=== PATIENT | male | born 1945 | race Caucasian/White ===

== ENCOUNTER 2019-11-14 16:21 | Inpatient (IN) | payer MEDICARE, SELFPAY ==
[2019-11-14] VITALS (10 sets, daily range): BP systolic 107–138; BP diastolic 71–106; PULSE 104–169; RESP 20–32; TEMP 35.6–36.6; O2SAT 5–96; BMI 32.5
--- NOTE | ~2019-11-14 | US_ITS ---
US renal BI DATE: 11/17/2019 14:01 INDICATION: Elevated serum creatinine TECHNIQUE: Real-time imaging of the kidneys and urinary bladder. COMPARISON: None FINDINGS: The right kidney measures 10 cm length, the left kidney 11 cm length. There is a subcentimeter cyst of the upper pole of the left kidney. There is a 3.8 cm simple cyst of the lower pole of the left kidney. Otherwise no renal mass lesion or hydronephrosis is detected. There is a small amount of free fluid in the right upper quadrant. The urinary bladder is evacuated a nd not evaluated. IMPRESSION: Left renal cysts or Reviewed, dictated and finalized at [facility]. Reviewed, dictated and finalized at location [facility]. IMPRESSION: Left renal cysts or
--- NOTE | ~2019-11-14 | XR_ITS ---
EXAMINATION: XR chest 2V EXAM DATE: 11/14/2019 18:02 INDICATION: Atrial fibrillation. Dyspnea on exertion. TECHNIQUE: Frontal and lateral projections of the chest obtained and reviewed. There is no prior bennie dy for comparison. FINDINGS: Bilateral mid and lower lung zone indistinct reticulation, could be pulmonary edema given the mild cardiomegaly and small pleural effusions. Can't exclude underlying infection. No confluent c onsolidation or pneumothorax. There are no osseous abnormalities identified. IMPRESSION: 1. Findings consistent with mild CHF exacerbation. Reviewed, dictated and finalized at location [facility].
--- NOTE | 2019-11-14 17:13 | ECG_ITS ---
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
--- NOTE | 2019-11-14 17:14 | ED.ARRPALP ---
HPI - Arrhythmia/Palpitations General Chief Complaint: Arrhythmia/Palpitations Stated Complaint: Weakness Time Seen by Provider: 11/14/19 16:32 Source: patient Mode of arrival: ambulatory Limitations: no limitations History of Present Illness HPI narrative: Patient is a 74-year-old male presents to the emergency department with complaint of rapid heartbeat. Patient reports onset of symptoms approximately 1 to 2 weeks ago. Patient has history of atrial fibrillation for which he was cardioverted in the past. Patient states he finally decided to come to the emergency department for evaluation at the insistence of his . Patient states he has had dyspnea on exertion and felt quite short of breath walking into the emergency department from his car this evening. Patient complains of bilateral lower extremity edema for the past few days. He denies any chest pain. He denies any fever or recent illness symptoms. Patient had been on metoprolol and states he stopped taking his medication approximately 1 month ago. Patient states he has not been on a blood thinner anytime recently. complaint: rapid heart beat and atrial fibrillation Onset (ago): week(s) (1-2) Duration: constant Severity: similar to previous episodes Arrhythmia history: atrial fibrillation Associated symptoms: shortness of breath Related Data Home Medications Medication Instructions Recorded Confirmed No Home Medications 11/14/19 11/14/19 Allergies Allergy/AdvReac Type Severity Reaction Status Date / Time No Known Allergies Allergy Mild Verified 11/14/19 16:36 Review of Systems Review of Systems: All systems reviewed & are unremarkable except as noted in HPI and below Cardiovascular: Cardiovascular: Reports acrocyanosis, Denies chest pain, Reports rapid heart rate, Reports leg edema, Reports dyspnea and Reports dyspnea on exertion Respiratory: Respiratory: Reports dyspnea PMFSH Past Medical History Medical History (Updated 11/14/19 @ 20:46 by Hazel Chacon MD) Atrial fibrillation History of cardioversion Prostate cancer Surgical History Surgical History (Updated 11/14/19 @ 17:18 by Hazel Chacon MD) History of prostatectomy Social History Social History (Updated 11/14/19 @ 17:18 by Hazel Chacon MD) Smoking status: Never smoker Gender identity (if verbalized by the patient): Male Exam Const: General: cooperative, no acute distress and alert Nutritional Appearance: well nourished Orientation/consciousness: patient oriented x3 Limitations: no limitations Eyes: Conjunctivae: conjunctivae normal Pupils: Equal, round and reactive pupils present Resp: Effort & Inspection: normal respiratory effort Auscultation: clear to auscultation bilaterally Cardio: Rate: tachycardic Rhythm: abnormal rhythm irregularly irregular GI: GI Palp: Yes Soft to palpation and No Tenderness to palpation present (GI) Auscultation: normal bowel sounds Skin: General skin exam: normal color Neuro: General: patient oriented x3 Cognition (Neuro): normal cognition Speech: normal speech Extrem: General: full ROM, normal exam except as noted and edema bilateral Psych: Mental Status: mental status grossly normal Affect: normal affect Attitude: cooperative Course Course Emergency Course: Patient presents to the emergency department in atrial fibrillation with RVR. Patient has been off of his beta-darrion for approximately 1 month. Patient given bolus x2 of Cardizem and started on drip. Patient will be admitted to hospitalist service for further care. Patient also with findings of congestive heart failure and given Lasix. Consultations Consultation #1: Case discussed with Monica Posadas, hospitalist service, who accepted patient for admission. Date: 11/14/19 Time: 18:00 Vital Signs Vital signs: Vital Signs Temperature 96.0 F L 11/14/19 16:29 Pulse Rate 169 H 11/14/19 16:29 Respiratory Rate 32 H 11/14/19 16:29 Blood
[2019-11-14 17:33] LABS: Basophils Absolute Auto 0.1 K/mm3 (0.0-0.1); Basophils Percent Auto 0.5 % (0.2-1.2); Eosinophils Absolute Auto 0.1 K/mm3 (0-0.3); Eosinophils Percent Auto 0.8 % (0-4.4); Hematocrit 47.7 % (42.0-52.0); Hemoglobin 14.4 g/dL (14.0-18.0); Immature Granulocyte Absolute 0.08 K/mm3 (0.00-0.031); Immature Granulocyte Percent A 0.7 % (0-0.5); Lymphocytes Absolute Auto 0.98 K/mm3 (0.9-3.2); Lymphocytes Percent Auto 8.4 % (18.3-44.2); Mean Corpuscular HGB Conc 30.2 g/dl (32-36); Mean Corpuscular Hemoglobin 30.9 pg (26-34); Mean Corpuscular Volume 102.4 fl (80-100); Mean Platelet Volume 11.6 fl (7.4-10.4); Monocytes Absolute Auto 1.2 K/mm3 (0.1-0.6); Monocytes Percent Auto 10.3 % (2.6-8.5); Neutrophils Absolute Auto 9.3 K/mm3 (1.3-6.7); Neutrophils Percent Auto 79.3 % (45.5-73.1); Platelet Count Result 259 k/mm3 (150-375); Red Blood Count 4.66 M/mm3 (4.6-6.20); Red Cell Distribution Width 19.4 % (11.5-14.5); White Blood Count 11.7 K/mm3 (4.5-10.0)
[2019-11-14 17:44] LABS: INR 1.4; Partial Thromboplastin Time 28.3 SECONDS (22.3-36.8); Prothrombin Time 16.4 Seconds (11.1-14.7)
[2019-11-14 17:47] LABS: Albumin Level 4.7 g/dL (3.5-5.1); Alkaline Phosphatase 98 U/L (38-126); Aspartate Amino Transferase 72 U/L (17-59); Bilirubin,Total 4.1 mg/dL (0.2-1.3); Blood Urea Nitrogen 43 mg/dL (9-20); Calcium 9.9 mg/dL (8.4-10.2); Carbon Dioxide 21 mmol/L (22-30); Chloride 100 mmol/L (98-107); Estimated CRCL calculation 30 ml/min; Estimated Glomerular Filt Rate 25; Glucose 140 mg/dL (75-110); Magnesium 2.2 mg/dL (1.6-2.3); Potassium 4.2 mmol/L (3.4-5.0); Sodium 138 mmol/L (137-145)
[2019-11-14 17:56] LABS: Alanine Aminotransferase 75 U/L (4-50)
[2019-11-14 17:58] LABS: NT Pro B Type Natriuretic Pept 6740 PG/ML (5-100); Troponin I 0.058 ng/mL (0.000-0.034)
[2019-11-14] MEDS: FUROSEMIDE INJ 40 MG/4 ML VIAL IV PUSH (18:14)
--- NOTE | 2019-11-14 21:02 | PM.IMHP ---
H&P: HPI History of Present Illness Chief complaint: Shortness of breath and fast heart rate Narrative: Date and time of patient contact: 11/14/2019 at 21:50 Sony Betancourt is a 74 year old male with a past medical history of hypertension, obstructive sleep apnea, and paroxysmal atrial fibrillation who presented to the ER with shortness of breath and fast heart rate. He noticed approximately 2 weeks ago he began feeling more tired and short of breath. He also noticed that his heart rate was higher. His are rate was around 160-180 beats per minute when he arrived to the ER. He denies any chest pain. He denies any orthopnea paroxysmal nocturnal dyspnea. He has noticed bilateral ankle swelling. He does have a history of paroxysmal atrial fibrillation for which he underwent cardiac ablation approximately 2 years ago. He has not been taking his metoprolol as he should. He has been prescribed Eliquis and past but he quit taking it of his own accord. He denies a history of CHF. he does not know what other medications that he was on in the past. He tells me that he uses [facility] in that he last took his meds about a month ago. However none of his meds pull up in the external med history which they would if he obtain the med [employer]. He does report that he gets some of his medical care at the [facility] but has not been to the [facility] or his primary care physician for at least 8 months. Patient has been non compliant with his CPAP machine as well. He denies a history of CVAs and denies any recent neurologic changes. He has noticed a mild cough productive of small amount of clear phlegm. He denies any fevers or chills. (per nursing report) his is debilitated and he is her primary caregiver. When asked the patient why has not been taking his medications he is somewhat vague in his answers. He denies any nausea or vomiting. He has been having normal bowel movements. He denies any dysuria or changes in urinary frequency. He denies a history of kidney disease however he did have a creatinine is high at 1.5 and 2011. His creatinine today is 2.5. He reports that he has not uses CPAP in at least 6 months. He reports that it is too difficult to clean the machine frequently. He has not seen his travel accommodations rater in 2 years. His physician is at [facility]. Review of Systems Review of Systems: Narrative: 12 systems were reviewed with pertinent positives and negatives per HPI. Except as documented in the HPI, all other systems were reviewed and are negative. [facility] Past Medical History Medical History (Updated 11/14/19 @ 23:42 by Honey Diaz DO) Chronic kidney disease, stage 3 Essential hypertension History of cardioversion Hyperlipidemia Obstructive sleep apnea Noncompliant with CPAP Paroxysmal atrial fibrillation Prostate cancer Surgical History Surgical History (Updated 11/14/19 @ 23:42 by Honey Diaz DO) History of prostatectomy June 2010 Hx of tonsillectomy Family History Family History (Updated 11/14/19 @ 22:00 by Margi Miranda, MARTY) Mother Aneurysm Father Alcohol abuse Cirrhosis of liver Father No problems noted. Social History Social History (Updated 11/15/19 @ 00:06 by Honey Diaz DO) Social History: Primary care physician: Dr. Te Mueller Code status: Full code Smoking packs per day: 1 Smoking cigarettes per day: 20.0 Years smoked: 30 Smoking pack-years: 30.00 Smoking status: Former smoker Smoking end date: 07/25/79 Alcohol intake: current Alcohol use details: The patient only drinks alcohol rarely and only in moderation. Substance use: never Additional living arrangements comments: The patient lives in [facility] with his of 50 years. He has 3 grown children who are reportedly healthy. He is independent in all activities of daily living. Occupation/Education: retired Additional occupation/e
[2019-11-14 21:11] LABS: Troponin I 0.065 ng/mL (0.000-0.034)
--- NOTE | 2019-11-14 21:57 | ADMGEN ---
This patient, Sony Betancourt, was admitted to IMU Room 203-01 FROM ER 11/14/192129. Patient/family oriented to hospital policies and general routines including ID bracelet, bed and alarms, visiting hours, pain management, procedures, bathroom and other care routines, personal items, smoking policy, room service/diet, and visiting hours. Valuables list has been completed. Information on how to activate the Rapid Response Team has been discussed. Patient/Family are encouraged to report perceived risks to care and to ask questions if they do not understand what they are told or what they should do.
[2019-11-14] MEDS: ENOXAPARIN 120 MG/0.8 ML SYRINGE 103 MG SUB-Q (23:09)
[2019-11-14 23:28] LABS: Magnesium 2.2 mg/dL (1.6-2.3)
[2019-11-14 23:32] LABS: Troponin I 0.076 ng/mL (0.000-0.034)
[2019-11-15] VITALS (17 sets, daily range): BP systolic 97–122; BP diastolic 58–82; PULSE 70–138; RESP 20–24; TEMP 36–36.6; O2SAT 93–97
--- NOTE | 2019-11-15 | ECHO_ITS ---
Patient Info Name: Sony Betancourt Age: 74 years : 1945 Gender: Male Ht: 70 in Wt: 237 lbs BSA: 2.34 m2 HR: 105 bpm BP: 114 / 82 mmHg Heart Rhythm: Atrial Fibrillation Technical Quality: Good Exam Date: 11/15/2019 10:42 AM Exam Location: [facility] Pulmonary Exam Room: Patient Status: Inpatient Admit Date: 11/14/2019 Staff Ordering Physician: Honey Diaz DO Mechanical Maintenance Supervisor: Vivian Ruiz RDCS Attending Provider: Kong Fall MD Referring Physician: Emily DE JESUS; Exam Type: CA echo doppler color flow Study Info Indications - chf afib Complete two-dimensional, color flow and Doppler transthoracic echocardiogram is performed. Summary 1. Normal LV size and thickness with severe global hypokinesis, EF 30%. No focal wall motion abnormalities. Abnormal septal motion related to the patient's LBBB. Diastolic function is indeterminate. 2. Right ventricular chamber dimension is mildly enlarged with mild to moderate right ventricular hypokinesis. 3. Left atrial chamber dimension is moderately enlarged. 4. Right atrial chamber dimension is moderately enlarged. 5. There is moderate to severe eccentric mitral valve regurgitation. 6. There is severe tricuspid valve stenosis. 7. Moderate pulmonary hypertension, estimated pulmonary arterial systolic pressure is 51 mmHg. 8. Atrial fibrillation with rapid ventricular response. Left Ventricle Left ventricular chamber dimension is normal. Left ventricular systolic function is severely reduced, estimated at 25-30%. There is no increased left ventricular wall thickness. Left ventricular septal wall motion is abnormal with septal motion related to bundle branch block. The left ventricular diastolic function is indeterminate. Normal LV size and thickness with severe global hypokinesis, EF 30%. No focal wall motion abnormalities. Abnormal septal motion related to the patient's LBBB. Diastolic function is indeterminate. Right Ventricle Right ventricular chamber dimension is mildly enlarged with mild to moderate right ventricular hypokinesis. Right ventricular systolic function is reduced. Left Atria Left atrial chamber dimension is moderately enlarged. Right Atria Right atrial chamber dimension is moderately enlarged. Aortic Valve The aortic valve is trileaflet. There is no aortic valve sclerosis. There is no aortic valve stenosis. There is no aortic valve regurgitation. Pulmonic Valve The pulmonic valve is normal. There is no pulmonic valve stenosis. There is no pulmonic regurgitation. Mitral Valve The mitral valve has normal leaflets. There is no mitral valve stenosis. There is moderate to severe eccentric mitral valve regurgitation. Tricuspid Valve The tricuspid valve leaflets are normal. There is severe tricuspid valve stenosis. There is no tricuspid valve regurgitation. Moderate pulmonary hypertension, estimated pulmonary arterial systolic pressure is 51 mmHg. Pericardium/Pleural The pericardium appears normal. There is no pericardial effusion. Inferior Vena Cava Dilated inferior vena cava with <50% collapse upon inspiration consistent with Empty right atrial pressure, 10 mmHg. Aorta The aortic root size at the sinus of Valsalva is normal. The prox ascending aorta size is normal. Left Ventricular Outflow Tract Name Value Normal
[2019-11-15] MEDS: CYCLOBENZAPRINE HCL 5 MG TABLET PO (00:32)
[2019-11-15 06:37] LABS: Blood Urea Nitrogen 47 mg/dL (9-20); Calcium 9.2 mg/dL (8.4-10.2); Carbon Dioxide 23 mmol/L (22-30); Chloride 102 mmol/L (98-107); Estimated CRCL calculation 29 ml/min; Estimated Glomerular Filt Rate 27; Glucose 116 mg/dL (75-110); Potassium 4.2 mmol/L (3.4-5.0); Sodium 136 mmol/L (137-145)
[2019-11-15 07:43] LABS: Folic Acid 11.6 ng/mL (2.76->20)
[2019-11-15] MEDS: ENOXAPARIN 120 MG/0.8 ML SYRINGE 103 MG SUB-Q (08:24)
[2019-11-15] MEDS: FUROSEMIDE INJ 40 MG/4 ML VIAL IV PUSH ×2 (08:24→18:06)
--- NOTE | 2019-11-15 11:24 | PM.IMPN ---
Progress Note: A&P Assessment and Plan (1) Atrial fibrillation with RVR: Code(s): I48.91 - Unspecified atrial fibrillation Status: Acute Assessment and Plan: Known history of paroxysmal atrial fibrillation. Patient on IV diltiazem. Review of telemetry on 11/15/2019 with patient still having increase in heart rate up to 120s to 130s at time. Cardiology has been consulted and appreciate input. On therapeutic Lovenox. Will continue to monitor. IV metoprolol added per Cardiology. (2) Acute CHF: Qualifiers: Heart failure type: systolic Qualified Code(s): I50.21 - Acute systolic (congestive) heart failure Code(s): I50.9 - Heart failure, unspecified Status: Acute Assessment and Plan: Probably result of atrial fibrillation with RVR. Echocardiogram ordered. Continue IV Lasix. Will continue to monitor. On room air. Echocardiogram results available this evening with EF 30%, severe global hypokinesis, diastolic dysfunction indeterminate and moderate pulmonary hypertension. Moderate to severe eccentric mitral valve regurgitation noted. (3) Chronic kidney disease, stage 4 (severe): Code(s): N18.4 - Chronic kidney disease, stage 4 (severe) Status: Acute Assessment and Plan: Current baseline creatinine unknown but does have history of chronic kidney disease stage 3. Now appears to be stage IV with GFR 29 and creatinine 2.40 without change from admission. Will continue to monitor. (4) Essential hypertension: Code(s): I10 - Essential (primary) hypertension Status: Acute Assessment and Plan: Blood pressure blood pressure reviewed on 11/15/2019 and stable. Will continue to monitor on IV diltiazem with addition of IV metoprolol. (5) Macrocytosis: Code(s): D75.89 - Other specified diseases of blood and blood-forming organs Status: Acute Assessment and Plan: Macrocytosis noted without anemia. Vitamin B12 and folate are normal. (6) Obstructive sleep apnea: Code(s): G47.33 - Obstructive sleep apnea (adult) (pediatric) Status: Acute Assessment and Plan: Known to be noncompliant with CPAP. Will monitor. (7) DVT prophylaxis: Code(s): Z29.9 - Encounter for prophylactic measures, unspecified Status: Acute Assessment and Plan: Therapeutic Lovenox. Time Spent With Patient Time with patient: 15 - 25 minutes Subjective Date/time seen: 11/15/19 11:24 Interval history: Date of Service: 11/15/2019. Admitted with atrial fibrillation with RVR, CHF. Patient feeling better this morning. Denies chest pain or palpitations. Does not feel short of breath. Does have cough. No fever. No headache. No nausea or vomiting. Review of Systems Review of Systems: Narrative: Feeling better. Constitutional: Constitutional: Denies chills and Denies fever(s) ENT: Denies dysphagia Cardiovascular: Cardiovascular: Denies chest pain and Denies palpitations Respiratory: Respiratory: Reports cough and Denies dyspnea Gastrointestinal: Gastrointestinal: Denies abdominal pain, Denies nausea and Denies vomiting Genitourinary: Genitourinary: Reports no additional male genitourinary complaints Musculoskeletal: Musculoskeletal: Reports no additional musculoskeletal complaints Integumentary/Breasts: Skin/Breast: Denies rash Neurologic: Denies headache(s) Psychiatric: Psychiatric: Denies confusion Exam Narrative: Exam Narrative: Awake and alert. Const: General: no acute distress HENMT: Mouth: Yes moist mucous membranes Neck: Neck: supple Lymphatic: lymphadenopathy not noted Resp: Auscultation: clear to auscultation bilaterally, no rales and no wheezes Cardio: Rate: tachycardic Rhythm: abnormal rhythm irregularly irregular GI: Inspection: non-distended GI Palp: Yes Soft to palpation and No Tenderness to palpation present (GI) Auscultation: normal bowel sounds Skin: General skin exam: no rashes
--- NOTE | 2019-11-15 12:06 | WPDCN ---
Assessment and Plan Assessment and plan (1) Atrial fibrillation with RVR: Code(s): I48.91 - Unspecified atrial fibrillation Status: Acute Assessment and Plan: History of AFib in cardioversion 2 years ago. Now presents with AFib RVR on no medicines, not well controlled with Cardizem 15 milligrams/hour which I will increase to 20 milligrams/hour after a 10 mg bolus. Will try some IV metoprolol 5 mg q 4 H, but I suspect we will need to use IV amiodarone. Discussed the need for anticoagulation. CHADS2 Vasc score is 4 (age, CHF, HTN). Will change Lovenox to Xarelto or Eliquis if affordable. Eliquis preferred due to CKD. I hope to control the patient's heart rate and discharge him on rate controlling medications for office FU and perhaps an elective OTP CV. If that fails he may need a ROSIO guided cardioversion as an INPT. (2) Acute CHF: Qualifiers: Heart failure type: unspecified Qualified Code(s): I50.9 - Heart failure, unspecified Code(s): I50.9 - Heart failure, unspecified Status: Acute Assessment and Plan: New onset of acute CHF, probably diastolic, probably related to the AFib RVR. Echo pending. Continue Lasix 40 mg IV push b.i.d. Follow lytes w/ daily BMP. (3) Essential hypertension: Code(s): I10 - Essential (primary) hypertension Status: Acute Assessment and Plan: Not taking any medications at home. BP was high on admission but improved with IV Cardizem (4) Obstructive sleep apnea: Code(s): G47.33 - Obstructive sleep apnea (adult) (pediatric) Status: Acute Assessment and Plan: Noncompliant with CPAP (5) Chronic kidney disease, stage 4 (severe): Code(s): N18.4 - Chronic kidney disease, stage 4 (severe) Status: Acute Assessment and Plan: Patient unaware of chronic kidney disease. (6) Noncompliance: Code(s): Z91.19 - Patient's noncompliance with other medical treatment and regimen Status: Acute Assessment and Plan: I have explained to the patient that his heart problems will need long-term medications. HPI Data of Consult Date/Time: 11/15/19 12:06 Requesting Physician: Kong Fall MD Primary Care Provider: Te Mueller, Consult Narrative Narrative: Date of service: 11/15/2019 Sony Estrada is a 74 year old male whom we were asked to see at the request of the hospitalist for advice and opinion regarding his recurrent AFib in CHF in consultation. Mr. Estrada had atrial fibrillation about [address] Jones at [facility]. He was cardioverted. He does not recall any anticoagulation, no other heart problems such as heart failure or heart attacks, and does not recall any ablation. He was on metoprolol at the time. In any case, the patient stopped his medications and for the past 2 weeks has been feeling more tired, weaker and short of breath. He has had PND, orthopnea, palpitations, and edema as well as anorexia and a cough productive of clear sputum. No fevers chills or chest pain. He presented to the ER with a heart rate of 160s-180s and in heart failure. He has been started on a Cardizem drip but still remains tachycardic with heart rate of 120-140 on Cardizem 15 milligrams/hour. He was started on Lovenox as well. The patient has a history of hypertension but no diabetes. He does not recall any hyperlipidemia. He has sleep apnea but is noncompliant with CPAP. Nonsmoker. Review of Systems Constitutional: Constitutional: Reports fatigue, Reports lethargy and Reports weakness Eyes: Eyes: Denies blurry vision ENT: Denies epistaxis and Denies nasal congestion Cardiovascular: Cardiovascular: Denies chest pain, Reports pedal edema,
[2019-11-15] MEDS: METOPROLOL TARTRATE INJ 5 MG/5 ML VIAL IV PUSH ×3 (14:55→23:08)
[2019-11-15] MEDS: MELATONIN 3 MG TABLET PO (21:29)
[2019-11-15] MEDS: APIXABAN 5 MG TABLET PO (21:30)
[2019-11-15] MEDS: ONDANSETRON INJ 4 MG/2 ML VIAL IV PUSH (21:33)
[2019-11-16] VITALS (18 sets, daily range): BP systolic 92–106; BP diastolic 52–79; PULSE 58–104; RESP 18–20; TEMP 36.3–36.6; O2SAT 91–100
[2019-11-16 04:47] LABS: Blood Urea Nitrogen 55 mg/dL (9-20); Calcium 9.4 mg/dL (8.4-10.2); Carbon Dioxide 25 mmol/L (22-30); Chloride 99 mmol/L (98-107); Estimated CRCL calculation 19 ml/min; Estimated Glomerular Filt Rate 16; Glucose 150 mg/dL (75-110); Potassium 5.2 mmol/L (3.4-5.0); Sodium 134 mmol/L (137-145)
[2019-11-16] MEDS: APIXABAN 5 MG TABLET PO (09:45)
--- NOTE | 2019-11-16 10:17 | PM.IMPN ---
Progress Note: A&P Assessment and Plan (1) Atrial fibrillation with RVR: Code(s): I48.91 - Unspecified atrial fibrillation Status: Acute Assessment and Plan: Known history of paroxysmal atrial fibrillation. Cardiology consulted and appreciate input. Telemetry reviewed on 11/16/2019 with atrial fibrillation but heart rate controlled. Discussed with Cardiology. IV diltiazem discontinued. IV metoprolol transition to metoprolol tartrate. Initially on therapeutic Lovenox then Eliquis but due to cost now transition to warfarin for anticoagulation. Monitor INR. Will continue to monitor on IMU. Hopeful discharge in next few days. (2) Acute CHF: Qualifiers: Heart failure type: systolic Qualified Code(s): I50.21 - Acute systolic (congestive) heart failure Code(s): I50.9 - Heart failure, unspecified Status: Acute Assessment and Plan: Result of atrial fibrillation with RVR. Echocardiogram results available this evening with EF 30%, severe global hypokinesis, diastolic dysfunction indeterminate and moderate pulmonary hypertension. Moderate to severe eccentric mitral valve regurgitation noted. IV Lasix held today with increasing creatinine. Remains on room air. Will continue to monitor. (3) Acute renal failure superimposed on stage 4 chronic kidney disease: Qualifiers: Acute renal failure type: unspecified Qualified Code(s): N17.9 - Acute kidney failure, unspecified; N18.4 - Chronic kidney disease, stage 4 (severe) Code(s): N17.9 - Acute kidney failure, unspecified; N18.4 - Chronic kidney disease, stage 4 (severe) Status: Acute Assessment and Plan: Current baseline creatinine unknown but does have history of chronic kidney disease stage 3. Now appears to be stage IV with GFR 29 and creatinine 2.40 for the past 2 days. Unfortunately, creatinine increased to 3.70 today which is most likely result of diuretic use. IV Lasix now held. Will continue to monitor. If increasing creatinine level, may need Nephrology consult and/or renal ultrasound. (4) Essential hypertension: Code(s): I10 - Essential (primary) hypertension Status: Acute Assessment and Plan: Blood pressure reviewed on 11/16/2019 and stable. Will continue to monitor on oral metoprolol. (5) Macrocytosis: Code(s): D75.89 - Other specified diseases of blood and blood-forming organs Status: Acute Assessment and Plan: Macrocytosis noted without anemia. Vitamin B12 and folate are normal. (6) Obstructive sleep apnea: Code(s): G47.33 - Obstructive sleep apnea (adult) (pediatric) Status: Acute Assessment and Plan: Known to be noncompliant with CPAP. Presently stable. Will monitor. (7) DVT prophylaxis: Code(s): Z29.9 - Encounter for prophylactic measures, unspecified Status: Acute Assessment and Plan: Now on warfarin. Time Spent With Patient Time with patient: 15 - 25 minutes Subjective Date/time seen: 11/16/19 10:17 Interval history: Date of Service: 11/16/2019. Admitted with atrial fibrillation with RVR, CHF. Sitting at side of bed. No shortness of breath at rest. Still has slight cough. No chest pain. No chest pressure. No abdominal pain. Still has swelling in legs. Review of Systems Constitutional: Constitutional: Denies chills and Denies fever(s) ENT: Denies dysphagia Cardiovascular: Cardiovascular: Denies chest pain, Reports leg edema and Denies palpitations Respiratory: Respiratory: Reports cough and Denies dyspnea Gastrointestinal: Gastrointestinal: Denies abdominal pain, Denies dysphagia, Denies nausea and Denies vomiting Genitourinary: Genitourinary: Reports no additional male genitourinary complaints Musculoskeletal: Musculoskeletal: Reports no additional musculoskeletal complaints Integumentary/Breasts: Skin/Breast: Denies rash Neurologic: Denies headache(s) Psychiatric: Psychiatr
--- NOTE | 2019-11-16 11:40 | PM.PNCARD ---
Progress Note: A&P Assessment and Plan (1) Atrial fibrillation with RVR: Code(s): I48.91 - Unspecified atrial fibrillation Status: Acute Assessment and Plan: History of AFib with cardioversion 2 years ago. Presented with AFib RVR on no medicines Diltiazem drip discontinued due to LV dysfunction. Was also receiving Metoprolol 5 mg IV q.6 hours. Will transition to p.o. beta-darrion. Initially will start with tartrate to evaluate heart rate and blood pressure response. Recommend discharge on succinate due to LV dysfunction. CHADS2 Vasc score is 4 (age, CHF, HTN). Started on apixaban 5 mg q.12 hours. Does not have Part D coverage so will start him on warfarin 5 mg daily starting with this evening's dose. Hoped to control the his heart rate and discharge him on rate controlling medications for office FU and perhaps an elective OTP CV. With his poor EF and atrial dilatation doubt that cardioversion would be successful. He thinks he may want to follow up again with Dr. Lentz at [facility]. He has not seen him for a number of years. He asked about getting medications from the [place] however he does not have an established primary care provider there. Echo 11/15/2019:Normal LV size and thickness with severe global hypokinesis, EF 30%. No focal wall motion abnormalities. Abnormal septal motion related to the patient's LBBB. Diastolic function is indeterminate. Right ventricular chamber dimension is mildly enlarged with mild to moderate right ventricular hypokinesis. Left atrial chamber dimension is moderately enlarged. Right atrial chamber dimension is moderately enlarged. There is moderate to severe eccentric mitral valve regurgitation. There is severe tricuspid valve stenosis. Moderate pulmonary hypertension, estimated pulmonary arterial systolic pressure is 51 mmHg. (2) Acute CHF: Qualifiers: Heart failure type: systolic Qualified Code(s): I50.21 - Acute systolic (congestive) heart failure Code(s): I50.9 - Heart failure, unspecified Status: Acute Assessment and Plan: New onset of acute CHF. Echo as above. May be related to atrial fibrillation with rapid ventricular response. Creatinine up to 3.7 this morning. Furosemide on hold. Comfortable on room air. Does have some fine bibasilar crackles. Continue to monitor (3) Essential hypertension: Code(s): I10 - Essential (primary) hypertension Status: Acute Assessment and Plan: Not taking any medications at home. Blood pressure now soft but he is asymptomatic. Continue to monitor with the initiation of the Metoprolol tartrate. (4) Obstructive sleep apnea: Code(s): G47.33 - Obstructive sleep apnea (adult) (pediatric) Status: Acute Assessment and Plan: Noncompliant with CPAP (5) Chronic kidney disease, stage 4 (severe): Code(s): N18.4 - Chronic kidney disease, stage 4 (severe) Status: Acute Assessment and Plan: He is unaware of chronic kidney disease. (6) Noncompliance: Code(s): Z91.19 - Patient's noncompliance with other medical treatment and regimen Status: Acute Assessment and Plan: Again explained that his heart problems will need long-term medications. He verbalizes agreement Additional Plan Plan discussed with Dr. Ramirez 1230 11/16/2019 Time Spent With Patient Time with patient: less than 15 minutes Subjective Date/time seen: 11/16/19 11:40 Interval history: Follow-up for: atrial fibrillation with RVR, CHF. Date of service: 11/16/2019 Subjective: Denied chest discomfort. Some neck discomfort from the bed. Shortness of breath significantly improved. Unable to lay flat in bed at this time however. Is on room air. Occasional pro
[2019-11-16 13:16] LABS: Prothrombin Time 21.8 Seconds (11.1-14.7)
[2019-11-16] MEDS: METOPROLOL TARTRATE 25 MG TABLET PO ×2 (14:05→20:13)
[2019-11-16] MEDS: WARFARIN (*PBKC) 5 MG TABLET PO (17:37)
[2019-11-16] MEDS: MELATONIN 3 MG TABLET PO (20:13)
[2019-11-17] VITALS (16 sets, daily range): BP systolic 102–109; BP diastolic 61–81; PULSE 83–118; RESP 12–20; TEMP 36.1–36.7; O2SAT 92–97
[2019-11-17 04:45] LABS: Blood Urea Nitrogen 65 mg/dL (9-20); Calcium 8.8 mg/dL (8.4-10.2); Carbon Dioxide 26 mmol/L (22-30); Chloride 95 mmol/L (98-107); Estimated CRCL calculation 17 ml/min; Estimated Glomerular Filt Rate 14; Glucose 95 mg/dL (75-110); Magnesium 2.3 mg/dL (1.6-2.3); Potassium 4.6 mmol/L (3.4-5.0); Sodium 132 mmol/L (137-145)
[2019-11-17] MEDS: METOPROLOL TARTRATE 25 MG TABLET PO ×2 (08:42→21:59)
--- NOTE | 2019-11-17 10:10 | PM.IMPN ---
Progress Note: A&P Assessment and Plan (1) Atrial fibrillation with RVR: Code(s): I48.91 - Unspecified atrial fibrillation Status: Acute Assessment and Plan: Known history of paroxysmal atrial fibrillation. Cardiology consulted and appreciate input. Telemetry reviewed on 11/17/2019 with atrial fibrillation with heart rate controlled. Now on oral metoprolol tartrate. After discussion, patient on warfarin for anticoagulation. INR pending today. Will continue to monitor. (2) Acute CHF: Qualifiers: Heart failure type: systolic Qualified Code(s): I50.21 - Acute systolic (congestive) heart failure Code(s): I50.9 - Heart failure, unspecified Status: Acute Assessment and Plan: Result of atrial fibrillation with RVR. Echocardiogram results available this evening with EF 30%, severe global hypokinesis, diastolic dysfunction indeterminate and moderate pulmonary hypertension. Moderate to severe eccentric mitral valve regurgitation noted. IV Lasix placed on hold on 11/16/2019 due to increasing creatinine. Patient still remains on room air. Will continue to monitor. (3) Acute renal failure superimposed on stage 4 chronic kidney disease: Qualifiers: Acute renal failure type: unspecified Qualified Code(s): N17.9 - Acute kidney failure, unspecified; N18.4 - Chronic kidney disease, stage 4 (severe) Code(s): N17.9 - Acute kidney failure, unspecified; N18.4 - Chronic kidney disease, stage 4 (severe) Status: Acute Assessment and Plan: Current baseline creatinine unknown but does have history of chronic kidney disease stage 3. Now appears to be stage IV with GFR 29 and creatinine 2.40 on admission. Unfortunately, creatinine has now increased to 4.20 today. IV Lasix was used on admission but held yesterday. Nephrology consulted and appreciate input. Will check renal ultrasound. Will continue to monitor. (4) Essential hypertension: Code(s): I10 - Essential (primary) hypertension Status: Acute Assessment and Plan: Blood pressure reviewed on 11/17/2019 and low normal but stable. Will continue to monitor on oral metoprolol. (5) Macrocytosis: Code(s): D75.89 - Other specified diseases of blood and blood-forming organs Status: Acute Assessment and Plan: Macrocytosis noted without anemia. Vitamin B12 and folate are normal. (6) Obstructive sleep apnea: Code(s): G47.33 - Obstructive sleep apnea (adult) (pediatric) Status: Acute Assessment and Plan: Known to be noncompliant with CPAP. Presently stable. Will monitor. (7) DVT prophylaxis: Code(s): Z29.9 - Encounter for prophylactic measures, unspecified Status: Acute Assessment and Plan: Now on warfarin. Time Spent With Patient Time with patient: 15 - 25 minutes Subjective Date/time seen: 11/17/19 10:10 Interval history: Date of Service: 11/17/2019. Admitted with atrial fibrillation with RVR, CHF. Feeling better today. Denies cough and shortness of breath. No chest pain or pressure. Does still have swelling in legs. No abdominal pain, nausea or vomiting. No headache or dizziness. Has noticed decrease in urination. Review of Systems Review of Systems: Narrative: Feeling better. Constitutional: Constitutional: Denies chills and Denies fever(s) ENT: Denies dysphagia Cardiovascular: Cardiovascular: Denies chest pain, Reports leg edema and Denies palpitations Respiratory: Respiratory: Reports cough and Denies dyspnea Gastrointestinal: Gastrointestinal: Denies abdominal pain, Denies dysphagia, Denies nausea and Denies vomiting Genitourinary: Genitourinary: Denies hematuria, Reports oliguria and Denies dysuria Musculoskeletal: Musculoskeletal: Reports no additional musculoskeletal complaints Integumentary/Breasts: Skin/Breast: Denies rash Neurologic: Denies headache(s) Psychiatric: Psychiatric: Denies confusion
--- NOTE | 2019-11-17 11:11 | PM.CNNEP ---
Assessment and Plan Assessment and plan (1) Elevated serum creatinine: Code(s): R79.89 - Other specified abnormal findings of blood chemistry Status: Acute Assessment and Plan: The patient had an elevated creatinine in 2010 of 1.5. At that point he had gross hematuria and urinary retention so it is unclear whether that was a chronic level of 1.5 or if that was just high at that time because of his symptoms. He has not had any labs done since then that he knows of. So it is unclear whether he has chronic kidney disease or not. Certainly the patient has diseases that would cause chronic kidney disease such as hypertension, sleep apnea which is untreated, and a history of smoking. We can get a renal ultrasound to see how because kidneys are to give us a clue as to whether he does have chronic disease or not. (2) Acute kidney injury: Code(s): N17.9 - Acute kidney failure, unspecified Status: Acute Assessment and Plan: The patient's creatinine was high on admission. This could be his chronic baseline if he does have CKD, see above. On the other hand he could just have acute kidney injury. Certainly the last couple of days his creatinine has risen above that 2.5 so he does have a component of acute kidney injury regardless. One possibility is that diuretics have caused his creatinine to rise. However his urine output has not been that great. I am not sure be saving all of his urine, though. He could have some form of acute kidney injury such as glomerulonephritis, infiltrative disease, etc which is just progressing. We will get some labs to figure this out. He does not seem to have much in the way of symptoms of something like this. Obstruction is a possibility as his urine output is down any has a history of prostate cancer. We will get an ultrasound and a PSA. Under perfusion of the kidneys because of a bad heart is a possibility. He does have an ejection fraction of only 30%. In addition the patient has moderate pulmonary hypertension most likely due to sleep apnea. (3) Essential hypertension: Code(s): I10 - Essential (primary) hypertension Status: Acute Assessment and Plan: Blood pressure is doing pretty well. (4) Obstructive sleep apnea: Code(s): G47.33 - Obstructive sleep apnea (adult) (pediatric) Status: Acute Assessment and Plan: He needs to start using the CPAP machine. (5) Acute CHF: Qualifiers: Heart failure type: systolic Qualified Code(s): I50.21 - Acute systolic (congestive) heart failure Code(s): I50.9 - Heart failure, unspecified Status: Acute Assessment and Plan: The patient has bilateral heart failure with a poor LV ejection fraction and moderate pulmonary hypertension. (6) Atrial fibrillation with RVR: Code(s): I48.91 - Unspecified atrial fibrillation Status: Acute Assessment and Plan: Pulses well controlled now. He used to be on Eliquis History of Present Illness Reason for Consult Consult date: 11/17/19 Chief Complaint Chief complaint: Atrial fibrillation w/ RVR, Acute CHF History of Present Illness Narrative: Shahram is a very pleasant 74-year-old gentleman who never sees the doctor. Apparently he does have a past history of an elevated creatinine in 2010, paroxysmal atrial fibrillation having been prescribed Eliquis in the past but he just stopped using it,Off medications, sleep apnea but does not want to use a CPAP machine, hyperlipidemia, prostate cancer. The patient says that over the last few weeks he has been gradually more swollen and short of breath. He has not had any fevers or cough. No chest pain. He notes for about the last week or 2 that he has not been making as much urine as usual. He generally does get up at night 1 or 2 times to urinate but even this is less of an issue. He says he does have a mildly slow stream. He denies any bloody urine, foamy urine, kidne
--- NOTE | 2019-11-17 12:00 | PM.PNCARD ---
Progress Note: A&P Additional Plan 74-year-old man with: History of atrial fibrillation remote history of cardioversion. But now has recurrent atrial fib of unknown duration. Heart rate is reasonably well controlled with metoprolol. Systemic anticoagulation with warfarin has been started. Chronic kidney disease appears to be much more significant issue that it may have been in the past. No need to adjust beta-darrion regimen today and there is no cardiac reason the needs to remain hospitalized from what I can see. The patient has seen home performance consultant at [facility] in the past and my understanding is he plans to follow up with them after discharge from [facility]. Will follow with you while he is here Lj Ramirez MD [facility] Subjective Date/time seen: Date of service: 11/17/19 12:00 Interval history: Follow-up visit for management of atrial fibrillation in this 74-year-old man Reports no cardiovascular symptoms. Patient saw the nephrology industrial methods consultant this morning and some additional workup has been ordered regarding that. Exam Const: General: comfortable and no acute distress HENMT: Mouth: Yes moist mucous membranes Eyes: Sclera: sclerae normal Pupils: Equal, round and reactive pupils present Neck: Neck: supple and no JVD Thyroid: thyroid normal Other: Carotid pulses are intact bilaterally and free of bruits Resp: Effort & Inspection: normal respiratory effort Auscultation: clear to auscultation bilaterally Cardio: Rhythm: abnormal rhythm irregularly irregular GI: Auscultation: normal bowel sounds Skin: General skin exam: normal color Neuro: Cognition (Neuro): normal cognition Extrem: General: normal to inspection Objective Data Vital Signs Vital Signs: Vital Signs - 24 hr 11/16/19 14:00 11/16/19 14:05 11/16/19 16:00 Temperature 36.4 C L Pulse Rate 104 H 98 70 Respiratory Rate 20 Blood Pressure 106/68 Pulse Oximetry 93 11/16/19 18:00 11/16/19 19:42 11/16/19 20:00 Temperature 36.4 C Pulse Rate 89 79 79 Respiratory Rate 18 18 Blood Pressure 103/68 Pulse Oximetry 91 91 11/16/19 20:13 11/16/19 21:42 11/17/19 00:00 Temperature 36.1 C L Pulse Rate 98 90 95 Respiratory Rate 20 Blood Pressure 102/61 Pulse Oximetry 92 11/17/19 01:55 11/17/19 03:44 11/17/19 03:45 Temperature 36.1 C L Pulse Rate 83 95 95 Respiratory Rate 16 16 Blood Pressure 105/81 Pulse Oximetry 94 94 11/17/19 04:00 11/17/19 06:00 11/17/19 08:00 Temperature 36.1 C L Pulse Rate 88 98 110 H Respiratory Rate 12 Blood Pressure 109/63 Pulse Oximetry 96 11/17/19 08:42 11/17/19 10:50 11/17/19 11:52 Temperature 36.5 C Pulse Rate 114 H 86 93 Respiratory Rate 12 Blood Pressure 104/72 Pulse Oximetry 95 Intake/Output Intake/Output: Intake & Output 11/14/19 11/15/19 11/16/19 11/17/19 23:59 23:59 23:59 23:59 Intake Total 1500 1062.7 840 Output Total 500 100 125 Balance 1000 962.7 715 Meds/Results Medications: Active Medications Generic Name Dose Route Start Last Admin Trade Name Freq PRN Reason Stop Dose Admin Cyclobenzaprine HCl 5 mg 11/14/19 23:30 11/15/19 00:32 Flexeril PO 5 mg Q8H PRN Administration Muscle Spasm Furosemide 40 mg 11/15/19 17:00 11/16/19 10:18 Lasix Inj IV PUSH Not Given BID JAIME Melatonin 3 mg 11/15/19 21:00 11/16/19 20:13 Melatonin PO 3 mg HS JAIME Administration Metoprolol Tartrate 25 mg 11/16/19 12:35 11/17/19 08:42 Lopressor PO 25 mg Q12HR JAIME Administration Ondansetron HCl 4 mg 11/15/19 20:55 11/15/19 21:33 Zofran Inj IV PUSH 4 mg Q4H PRN Administration Nausea And Vomiting Warfarin Sodium 5 mg 11/16/19 17:00 11/16/19 17:37 Coumadin PO 5 mg DAILY@1700 JAIME Administration Radiology Results: ITS Impressions Chest X-Ray 11/14/19 18:04 IMPRESSION: 1. Findings consistent with mild CHF exacerbation.
[2019-11-17 12:35] LABS: Basophils Absolute Auto 0.1 K/mm3 (0.0-0.1); Basophils Percent Auto 0.6 % (0.2-1.2); Eosinophils Absolute Auto 0.3 K/mm3 (0-0.3); Eosinophils Percent Auto 2.6 % (0-4.4); Hematocrit 39.9 % (42.0-52.0); Hemoglobin 12.5 g/dL (14.0-18.0); Lymphocytes Absolute Auto 0.86 K/mm3 (0.9-3.2); Lymphocytes Percent Auto 8.6 % (18.3-44.2); Mean Corpuscular HGB Conc 31.3 g/dl (32-36); Mean Corpuscular Hemoglobin 31.8 pg (26-34); Mean Corpuscular Volume 101.5 fl (80-100); Mean Platelet Volume 11.3 fl (7.4-10.4); Monocytes Absolute Auto 1.2 K/mm3 (0.1-0.6); Monocytes Percent Auto 12.2 % (2.6-8.5); Neutrophils Absolute Auto 7.5 K/mm3 (1.3-6.7); Nucleated Red Blood Cells Perc 0.2 % (0.0-0.2); Platelet Count Result 224 k/mm3 (150-375); Red Blood Count 3.93 M/mm3 (4.6-6.20); Red Cell Distribution Width 18.9 % (11.5-14.5)
[2019-11-17 12:44] LABS: INR 1.6; Prothrombin Time 18.3 Seconds (11.1-14.7)
[2019-11-17 12:48] LABS: Creatine Kinase 57 U/L (55-170)
[2019-11-17 12:57] LABS: Complement C3 89 mg/dL (88-165)
[2019-11-17 13:06] LABS: Erythrocyte Sedimentation Rate 12 mm/hr (0-20)
--- NOTE | 2019-11-17 16:05 | PC.NURSE ---
Received from [facility] / via bed.
--- NOTE | 2019-11-17 16:05 | PC.NURSE ---
This patient, Sony Betancourt, was transferred to [facility] on 11/17/19 at 1605. Personal belongings sent with patient. Belongings list checked and signed with receiving RN. Report given to MARTY Plata. Appropriate documentation sent with patient.
[2019-11-17] MEDS: WARFARIN (*PBKC) 5 MG TABLET PO (16:58)
[2019-11-17] MEDS: MELATONIN 3 MG TABLET PO (22:03)
[2019-11-18 04:47] VITALS: BP 106/82; PULSE 76; RESP 16; TEMP 36.4; O2SAT 97
[2019-11-18 06:21] LABS: INR 1.7; Prothrombin Time 19.1 Seconds (11.1-14.7)
[2019-11-18 06:31] LABS: Albumin Level 3.7 g/dL (3.5-5.1); Blood Urea Nitrogen 68 mg/dL (9-20); Calcium 8.7 mg/dL (8.4-10.2); Carbon Dioxide 27 mmol/L (22-30); Chloride 96 mmol/L (98-107); Estimated CRCL calculation 20 ml/min; Estimated Glomerular Filt Rate 16; Glucose 127 mg/dL (75-110); Phosphorus 5.1 mg/dL (2.5-4.5); Potassium 4.1 mmol/L (3.4-5.0); Sodium 132 mmol/L (137-145)
[2019-11-18 08:16] VITALS: PULSE 120
[2019-11-18] MEDS: METOPROLOL TARTRATE 25 MG TABLET PO ×2 (08:16→20:38)
[2019-11-18 09:10] VITALS: PULSE 120; RESP 16; O2SAT 97
--- NOTE | 2019-11-18 09:20 | PM.PNNEP ---
Progress Note: A&P Assessment and Plan (1) Elevated serum creatinine: Code(s): R79.89 - Other specified abnormal findings of blood chemistry Status: Acute Assessment and Plan: Possible CKD but unclear baseline anywhere from normal to 2.5. (2) Acute kidney injury: Code(s): N17.9 - Acute kidney failure, unspecified Status: Acute Assessment and Plan: The patient's creatinine was high on admission. This could be his chronic baseline if he does have CKD Renal sonogram is normal except for 1 cyst. Urines are still uncollected. I suspect that he has acute kidney injury from cardiorenal syndrome due to a combination of LV insufficiency and tricuspid stenosis. He was on diuretics to try to help with the fluid overload. His symptoms in this regard are better and so diuretics have been discontinued. His creatinine is better off diuretics. Hopefully creatinine will continue to improve before his fluid becomes an issue again. There are some areas that can be improved such is using his BiPAP machine, staying on a low-salt diet, taking his medications. Is are something we can do about the tricuspid stenosis? (3) Essential hypertension: Code(s): I10 - Essential (primary) hypertension Status: Acute Assessment and Plan: Blood pressure is doing pretty well. (4) Obstructive sleep apnea: Code(s): G47.33 - Obstructive sleep apnea (adult) (pediatric) Status: Acute Assessment and Plan: He needs to start using the CPAP machine. (5) Acute CHF: Qualifiers: Heart failure type: systolic Qualified Code(s): I50.21 - Acute systolic (congestive) heart failure Code(s): I50.9 - Heart failure, unspecified Status: Acute Assessment and Plan: The patient has bilateral heart failure with a poor LV ejection fraction and moderate pulmonary hypertension. Echo also shows severe tricuspid stenosis. (6) Atrial fibrillation with RVR: Code(s): I48.91 - Unspecified atrial fibrillation Status: Acute Assessment and Plan: Pulses well controlled now. He used to be on Eliquis Subjective Date/time seen: 11/18/19 09:20 Interval history: They but is feeling better today. He is eating some breakfast. No shortness of breath or chest pain Review of Systems Cardiovascular: Cardiovascular: Reports no additional cardiovascular complaints Respiratory: Respiratory: Reports no additional respiratory complaints Gastrointestinal: Gastrointestinal: Reports no additional gastrointestinal complaints Genitourinary: Genitourinary: Reports no additional male genitourinary complaints Exam Narrative: Exam Narrative: WDWN in NAD skin no rash head ncat lungs clear cor reg no rub abd BS+ nontender and soft ext no edema. Objective Data Vital Signs Vital Signs: Vital Signs - 24 hr 11/17/19 10:50 11/17/19 11:52 11/17/19 12:00 Temperature 36.5 C Pulse Rate 86 93 108 H Respiratory Rate 12 Blood Pressure 104/72 Pulse Oximetry 95 11/17/19 14:00 11/17/19 16:05 11/17/19 20:00 Temperature Pulse Rate 112 H 84 Respiratory Rate 16 14 Blood Pressure Pulse Oximetry 95 97 11/17/19 21:54 11/17/19 21:59 11/18/19 04:47 Temperature 36.7 C 36.4 C L Pulse Rate 84 84 76 Respiratory Rate 14 16 Blood Pressure 104/69 106/82 Pulse Oximetry 97 97 11/18/19 08:16 Temperature Pulse Rate 120 H Respiratory Rate Blood Pressure Pulse Oximetry Intake/Output Intake/Output: Intake & Output 11/15/19 11/16/19 11/17/19 11/18/19 23:59 23:59 23:59 23:59 Intake Total 1500 1062.7 1420 550 Output Total 500 100 250 475 Balance 1000 962.7 1170 75 Meds/Results Medications: Active Medications Generic Name Dose Route Start Last Admin Trade Name Freq PRN Reason Stop Dose Admin Cyclobenzaprine HCl 5 mg 11/14/19 23:30 11/15/19 00:32 Flexeril PO 5 mg Q8H PRN Administration Muscle Spasm Paulina
--- NOTE | 2019-11-18 10:40 | PM.PNCARD ---
Progress Note: A&P Additional Plan 74-year-old gentleman with previously paroxysmal AFib now appears to be chronic persistent. Coumadin has been started at 5 mg daily his INR is climbing and this appears to be a higher dose than he will need. I am going to empirically reduce this to 3 mg daily as of today's dosage. Metoprolol is providing fairly good heart rate control. No other cardiac recommendations at this time. 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 We will therefore not be arranging follow-up in our practice as well Lj Ramirez MD [facility] Subjective Date/time seen: Date of service: 11/18/19 10:40 Interval history: Follow-up visit in 74-year-old man with history of paroxysmal atrial fib now appears to have chronic persistent atrial fib. Patient is being managed with rate control and anticoagulation. Because of renal failure he is being treated with Coumadin. Patient indicates desire to follow-up with Dr. 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 Upon awakening he arouses response to questions offers no complaints HENMT: Mouth: Yes dry mucous membranes Eyes: Sclera: sclerae normal Pupils: Equal, round and reactive pupils present Neck: Neck: supple and no JVD Thyroid: thyroid normal Resp: Effort & Inspection: normal respiratory effort Auscultation: clear to auscultation bilaterally Cardio: Rhythm: abnormal rhythm irregularly irregular GI: Auscultation: normal bowel sounds Skin: General skin exam: normal color Neuro: Cognition (Neuro): normal cognition Objective Data Vital Signs Vital Signs: Vital Signs - 24 hr 11/17/19 10:50 11/17/19 11:52 11/17/19 12:00 Temperature 36.5 C Pulse Rate 86 93 108 H Respiratory Rate 12 Blood Pressure 104/72 Pulse Oximetry 95 11/17/19 14:00 11/17/19 16:05 11/17/19 20:00 Temperature Pulse Rate 112 H 84 Respiratory Rate 16 14 Blood Pressure Pulse Oximetry 95 97 11/17/19 21:54 11/17/19 21:59 11/18/19 04:47 Temperature 36.7 C 36.4 C L Pulse Rate 84 84 76 Respiratory Rate 14 16 Blood Pressure 104/69 106/82 Pulse Oximetry 97 97 11/18/19 08:16 11/18/19 09:10 Temperature Pulse Rate 120 H 120 H Respiratory Rate 16 Blood Pressure Pulse Oximetry 97 Intake/Output Intake/Output: Intake & Output 11/15/19 11/16/19 11/17/19 11/18/19 23:59 23:59 23:59 23:59 Intake Total 1500 1062.7 1420 550 Output Total 500 100 250 475 Balance 1000 962.7 1170 75 Meds/Results Medications: Active Medications Generic Name Dose Route Start Last Admin Trade Name Freq PRN Reason Stop Dose Admin Cyclobenzaprine HCl 5 mg 11/14/19 23:30 11/15/19 00:32 Flexeril PO 5 mg Q8H PRN Administration Muscle Spasm Melatonin 3 mg 11/15/19 21:00 11/17/19 22:03 Melatonin PO 3 mg HS JAIME Administration Metoprolol Tartrate 25 mg 11/16/19 12:35 11/18/19 08:16 Lopressor PO 25 mg Q12HR JAIME Administration Ondansetron HCl 4 mg 11/15/19 20:55 11/15/19 21:33 Zofran Inj IV PUSH 4 mg Q4H PRN Administration Nausea And Vomiting Radiology Results: ITS Impressions Chest X-Ray 11/14/19 18:04 IMPRESSION: 1. Findings consistent with mild CHF exacerbation. Renal Ultrasound 11/17/19 16:58 IMPRESSION: Left renal cysts or Labs Labs: Laboratory Results - last 24 hr 11/17/19 11/17/19 11/17/19 12:07 12:07 12:07 WBC 10.0 RBC 3.93 L Hgb 12.5 L Hct 39.9 L MCV 101.5 H MCH 31.8 MCHC 31.3 L RDW 18.9 H Plt Count 224 MPV 11.3 H Immature Gran % (Auto) 1.0 H Neut % (Auto) 75.0 H Lymph % (Auto) 8.6 L [place] % (Auto) 12.2 H Eos % (Auto) 2.6 Baso % (Auto) 0.6
--- NOTE | 2019-11-18 12:48 | PM.IMPN ---
Progress Note: A&P Assessment and Plan (1) Acute renal failure superimposed on stage 4 chronic kidney disease: Qualifiers: Acute renal failure type: unspecified Qualified Code(s): N17.9 - Acute kidney failure, unspecified; N18.4 - Chronic kidney disease, stage 4 (severe) Code(s): N17.9 - Acute kidney failure, unspecified; N18.4 - Chronic kidney disease, stage 4 (severe) Status: Acute Assessment and Plan: Current baseline creatinine unknown but does have history of chronic kidney disease stage 3. Now appears to be stage IV with GFR 29 and creatinine 2.40 on admission. Creatinine did rise to 4.20 after diuretics on 11/17/2019 with nephrology consulted. Appreciate input from Nephrology. 24 hour urine in process. Creatinine has improved to 3.70 again today. IV diuretics were discontinued on 11/16/2019 with increasing creatinine level. Renal ultrasound with left renal cysts. Will continue to monitor. Hopefully will not have recurrence of fluid overload issues without diuretic. Anticipate he should be able to discharge home creatinine has improved and he is otherwise stable. I did speak with his daughter Madiha ([phone]) with patient's permission as she does live in [place]. I had a long discussion with her regarding patient's current course and treatment plan. Daughter appreciative of information. (2) Atrial fibrillation with RVR: Code(s): I48.91 - Unspecified atrial fibrillation Status: Acute Assessment and Plan: Known history of paroxysmal atrial fibrillation. Cardiology consulted and appreciate input. Heart rate now remains controlled on metoprolol tartrate. Now on warfarin for anticoagulation with INR 1.7 today. Warfarin dosage adjusted to 3 mg per Cardiology today. Patient now plans to follow-up with his regular family services specialist, Dr. Lentz, at [facility]. Discussed with daughter patient will need to follow-up as he apparently has not been doing so recently. Daughter does mention patient was previously on Eliquis but discontinued for unknown reason. I did explain warfarin was currently chosen for anticoagulation due to cost of newer agents. Patient may need to rediscuss choice of anticoagulant with regular family services specialist after discharge. (3) Acute CHF: Qualifiers: Heart failure type: systolic Qualified Code(s): I50.21 - Acute systolic (congestive) heart failure Code(s): I50.9 - Heart failure, unspecified Status: Acute Assessment and Plan: Result of atrial fibrillation with RVR. Echocardiogram results available this evening with EF 30%, severe global hypokinesis, diastolic dysfunction indeterminate and moderate pulmonary hypertension. Moderate to severe eccentric mitral valve regurgitation noted. Daughter was advised of echocardiogram results in addition to other information. IV Lasix discontinued as of 11/16/2019 due to increasing creatinine. Remains stable at this point without diuretic. On room air. Will monitor. (4) Essential hypertension: Code(s): I10 - Essential (primary) hypertension Status: Acute Assessment and Plan: Blood pressure reviewed on 11/18/2019 and stable. Will continue to monitor on oral metoprolol. (5) Macrocytosis: Code(s): D75.89 - Other specified diseases of blood and blood-forming organs Status: Acute Assessment and Plan: Macrocytosis noted without anemia. Vitamin B12 and folate are normal. (6) Obstructive sleep apnea: Code(s): G47.33 - Obstructive sleep apnea (adult) (pediatric) Status: Acute Assessment and Plan: Known to be noncompliant with CPAP. Presently stable. Will monitor. (7) DVT prophylaxis: Code(s): Z29.9 - Encounter for prophylactic measures, unspecified Status: Acute Assessment and Plan: Now on warfarin. Time Spent With Patient Time with patient: 15 - 25 minutes Subjective Date/time seen: 11/18/19 12
[2019-11-18 14:00] VITALS: BP 108/68; PULSE 78; RESP 16; TEMP 36.8; O2SAT 100
[2019-11-18 16:59] LABS: Add Urine Microscopic? YES; Appearance Urine Clear (Clear); Bilirubin Urine Negative (Negative); Blood Urine Negative (Negative); Color Urine Yellow (Yellow); Glucose Urine UA Negative (Negative); Ketones Urine Negative (Negative); Leukocyte Esterase Ur Negative LEU/UL (NEGATIVE); Mucus Urine Rare /lpf; Nitrate Urine Negative (Negative); Protein Urine Negative (Negative); RBC Urine 0-2 /hpf (0-2); Specific Grav Ur 1.016 (1.001-1.035); Squamous Epithelial Cell Urine Rare /hpf (Few); WBC Urine 0-3 /hpf (0-3)
[2019-11-18] MEDS: WARFARIN (*PBKC) 3 MG TABLET PO (16:59)
[2019-11-18 17:03] LABS: Creatinine Urine 120.1 mg/dL; Total Protein Urine Random 15 mg/dL
[2019-11-18 17:21] LABS: Sodium Urine Random 15 meq/L
[2019-11-18 20:38] VITALS: PULSE 96
[2019-11-18] MEDS: MELATONIN 3 MG TABLET PO (20:38)
[2019-11-18 22:38] VITALS: BP 108/85; PULSE 92; RESP 18; TEMP 36.5; O2SAT 96
[2019-11-19 05:57] LABS: Albumin Level 3.6 g/dL (3.5-5.1); Blood Urea Nitrogen 64 mg/dL (9-20); Calcium 8.5 mg/dL (8.4-10.2); Carbon Dioxide 29 mmol/L (22-30); Chloride 98 mmol/L (98-107); Estimated CRCL calculation 25 ml/min; Estimated Glomerular Filt Rate 21; Glucose 99 mg/dL (75-110); Phosphorus 4.5 mg/dL (2.5-4.5); Potassium 4.4 mmol/L (3.4-5.0); Sodium 134 mmol/L (137-145)
[2019-11-19 06:01] LABS: Basophils Absolute Auto 0.1 K/mm3 (0.0-0.1); Basophils Percent Auto 0.7 % (0.2-1.2); Eosinophils Absolute Auto 0.2 K/mm3 (0-0.3); Hematocrit 40.1 % (42.0-52.0); Hemoglobin 12.3 g/dL (14.0-18.0); Immature Granulocyte Absolute 0.12 K/mm3 (0.00-0.031); Immature Granulocyte Percent A 1.7 % (0-0.5); Lymphocytes Absolute Auto 0.77 K/mm3 (0.9-3.2); Mean Corpuscular HGB Conc 30.7 g/dl (32-36); Mean Corpuscular Hemoglobin 31.1 pg (26-34); Mean Corpuscular Volume 101.5 fl (80-100); Mean Platelet Volume 11.5 fl (7.4-10.4); Monocytes Absolute Auto 0.9 K/mm3 (0.1-0.6); Monocytes Percent Auto 13.5 % (2.6-8.5); Neutrophils Absolute Auto 4.9 K/mm3 (1.3-6.7); Neutrophils Percent Auto 70.1 % (45.5-73.1); Platelet Count Result 196 k/mm3 (150-375); Red Blood Count 3.95 M/mm3 (4.6-6.20); Red Cell Distribution Width 18.9 % (11.5-14.5)
[2019-11-19 06:07] LABS: INR 1.9; Prothrombin Time 21.4 Seconds (11.1-14.7)
[2019-11-19 06:21] VITALS: BP 106/77; PULSE 96; RESP 18; TEMP 36.4; O2SAT 98
[2019-11-19 08:57] VITALS: PULSE 98
[2019-11-19] MEDS: METOPROLOL TARTRATE 25 MG TABLET PO ×2 (08:57→20:11)
[2019-11-19 12:11] LABS: Complement Total CH50 >60 U/mL (31-60)
[2019-11-19 16:00] VITALS: BP 121/79; PULSE 97; RESP 16; TEMP 36.4; O2SAT 98
--- NOTE | 2019-11-19 17:12 | PM.PNNEP ---
Progress Note: A&P Assessment and Plan (1) Acute kidney injury: Code(s): N17.9 - Acute kidney failure, unspecified Status: Acute Assessment and Plan: not entirely sure what baseline creatinine is creatinine was 2.5mg/dl on admission (if this is baseline, would mean he has CKD) renal u/s normal aside from 1 cyst suspicion falls on cardiorenal syndrome as etiology due to a combination of LV insufficiency and tricuspid stenosis with necessity of diuretics to maintain volume status creatinine improving with holding diuretics continue current therapy (2) Essential hypertension: Code(s): I10 - Essential (primary) hypertension Status: Acute Assessment and Plan: blood pressure stable follow trend of hemodynamics (3) Acute CHF: Qualifiers: Heart failure type: systolic Qualified Code(s): I50.21 - Acute systolic (congestive) heart failure Code(s): I50.9 - Heart failure, unspecified Status: Acute Assessment and Plan: several issues: - bilateral heart failure with a poor LV ejection fraction - moderate pulmonary hypertension - severe tricuspid stenosis continue supportive therapy (4) Atrial fibrillation with RVR: Code(s): I48.91 - Unspecified atrial fibrillation Status: Acute Assessment and Plan: rate control strategy restarted on Eliquis Discussed with Dr. Rendon. Will continue to follow. Subjective Date/time seen: 11/19/19 17:12 Seems to be doing reasonably well; coumadin switched to Eliquis today; patient anxious for discharge today; no events overnight or earlier this AM. Exam Narrative: Exam Narrative: General: WD/WN male in NAD Heart: normal S1 and S2; no rub Lungs: clear to auscultation Abdomen: soft, nontender, nondistended, positive bowel sounds Extremities: no cyanosis or clubbing; no edema Skin: warm and dry Objective Data Vital Signs Vital Signs: Vital Signs Temp Pulse Resp BP Pulse Ox 11/19/19 16:00 36.4 C 97 16 121/79 98 11/19/19 08:57 98 11/19/19 06:21 36.4 C 96 18 106/77 98 11/18/19 22:38 36.5 C 92 18 108/85 96 11/18/19 20:38 96 Intake/Output Intake/Output: Intake & Output 11/16/19 11/17/19 11/18/19 11/19/19 23:59 23:59 23:59 23:59 Intake Total 1062.7 1420 1770 1320 Output Total 740 054 6734 1999 Balance 962.7 1170 428 -659 Meds/Results Medications: Active Medications Generic Name Dose Route Start Last Admin Trade Name Freq PRN Reason Stop Dose Admin Apixaban 5 mg 11/19/19 21:00 Eliquis PO Q12HR JAIME Cyclobenzaprine HCl 5 mg 11/14/19 23:30 11/15/19 00:32 Flexeril PO 5 mg Q8H PRN Administration Muscle Spasm Melatonin 3 mg 11/15/19 21:00 11/18/19 20:38 Melatonin PO 3 mg HS JAIME Administration Metoprolol Tartrate 25 mg 11/16/19 12:35 11/19/19 08:57 Lopressor PO 25 mg Q12HR JAIME Administration Ondansetron HCl 4 mg 11/15/19 20:55 11/15/19 21:33 Zofran Inj IV PUSH 4 mg Q4H PRN Administration Nausea And Vomiting Radiology Results: ITS Impressions Chest X-Ray 11/14/19 18:04 IMPRESSION: 1. Findings consistent with mild CHF exacerbation. Renal Ultrasound 11/17/19 16:58 IMPRESSION: Left renal cysts or Labs Labs: Laboratory Tests 11/19/19 05:31 11/19/19 05:31
--- NOTE | 2019-11-19 17:24 | PM.IMPN ---
Progress Note: A&P Assessment and Plan (1) Acute renal failure superimposed on stage 4 chronic kidney disease: Qualifiers: Acute renal failure type: unspecified Qualified Code(s): N17.9 - Acute kidney failure, unspecified; N18.4 - Chronic kidney disease, stage 4 (severe) Code(s): N17.9 - Acute kidney failure, unspecified; N18.4 - Chronic kidney disease, stage 4 (severe) Status: Acute Assessment and Plan: Current baseline creatinine unknown but does have history of chronic kidney disease stage 3. Now appears to be stage IV with GFR 29 and creatinine 2.40 on admission. Creatinine did rise to 4.20 after diuretics on 11/17/2019 with nephrology consulted. Appreciate input from Nephrology. 24 hour urine in process. Creatinine has improved to 3.70 again today. IV diuretics were discontinued on 11/16/2019 with increasing creatinine level. Renal ultrasound with left renal cysts. Will continue to monitor. Hopefully will not have recurrence of fluid overload issues without diuretic. Anticipate he should be able to discharge home creatinine has improved and he is otherwise stable. I did speak with his daughter Madiha ([phone]) with patient's permission as she does live in [place]. I had a long discussion with her regarding patient's current course and treatment plan. Daughter appreciative of information. Date of Service: 11/19/2019. Admitted with atrial fibrillation with RVR, CHF. Sitting in chair. Feels good today. No cough or shortness of breath. No chest pain or chest pressure. Swelling remains legs but has not increased. No headache or dizziness. No abdominal pain, nausea or vomiting. Still notices decrease in urination but unchanged. 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 Cardiology consulted and appreciate input. Heart rate now remains controlled on metoprolol tartrate. Now on warfarin for anticoagulation with INR 1.7 today. Warfarin dosage adjusted to 3 mg per Cardiology today. Patient now plans to follow-up with his regular environmental projects advisor, Dr. Lentz, at [facility]. Discussed with daughter patient will need to follow-up as he apparently has not been doing so recently. Daughter does mention patient was previously on Eliquis but discontinued for unknown reason. I did explain warfarin was currently chosen for anticoagulation due to cost of newer agents. Patient may need to rediscuss choice of anticoagulant with regular environmental projects advisor after discharge. We have switched patient to Eliquis (3) Acute CHF: Qualifiers: Heart failure type: systolic Qualified Code(s): I50.21 - Acute systolic (congestive) heart failure Code(s): I50.9 - Heart failure, unspecified Status: Acute Assessment and Plan: Result of atrial fibrillation with RVR. Echocardiogram results available this evening with EF 30%, severe global hypokinesis, diastolic dysfunction indeterminate and moderate pulmonary hypertension. Moderate to severe eccentric mitral valve regurgitation noted. Daughter was advised of echocardiogram results in addition to other information. IV Lasix discontinued as of 11/16/2019 due to increasing creatinine. Remains stable at this point without diuretic. On room air. Will monitor. (4) Essential hypertension: Code(s): I10 - Essential (primary) hypertensi
[2019-11-19 19:56] VITALS: BP 113/63; PULSE 94; RESP 16; TEMP 36.2; O2SAT 97
[2019-11-19 20:11] VITALS: PULSE 98
[2019-11-19] MEDS: APIXABAN 5 MG TABLET PO (20:11)
[2019-11-19] MEDS: MELATONIN 3 MG TABLET PO (20:11)
[2019-11-20 06:09] LABS: INR 2.1; Prothrombin Time 23.3 Seconds (11.1-14.7)
[2019-11-20 06:25] VITALS: BP 113/66; PULSE 94; RESP 16; TEMP 37; O2SAT 96
[2019-11-20 08:33] VITALS: PULSE 93
[2019-11-20] MEDS: APIXABAN 5 MG TABLET PO (08:33)
[2019-11-20] MEDS: METOPROLOL TARTRATE 25 MG TABLET PO (08:33)
[2019-11-20 08:58] LABS: Albumin Level 3.8 g/dL (3.5-5.1); Blood Urea Nitrogen 53 mg/dL (9-20); Calcium 8.5 mg/dL (8.4-10.2); Carbon Dioxide 29 mmol/L (22-30); Chloride 99 mmol/L (98-107); Estimated CRCL calculation 36 ml/min; Estimated Glomerular Filt Rate 31; Glucose 128 mg/dL (75-110); Phosphorus 3.1 mg/dL (2.5-4.5); Sodium 136 mmol/L (137-145)
--- NOTE | 2019-11-20 11:34 | PM.PNNEP ---
Progress Note: A&P Assessment and Plan (1) Acute kidney injury: Code(s): N17.9 - Acute kidney failure, unspecified Status: Acute Assessment and Plan: not entirely sure what baseline creatinine is creatinine was 2.5mg/dl on admission (if this is baseline, would mean he has CKD) renal u/s normal aside from 1 cyst suspicion falls on cardiorenal syndrome as etiology due to a combination of LV insufficiency and tricuspid stenosis with necessity of diuretics to maintain volume status creatinine improving with holding diuretics continue current therapy (2) Essential hypertension: Code(s): I10 - Essential (primary) hypertension Status: Acute Assessment and Plan: blood pressure stable follow trend of hemodynamics (3) Acute CHF: Qualifiers: Heart failure type: systolic Qualified Code(s): I50.21 - Acute systolic (congestive) heart failure Code(s): I50.9 - Heart failure, unspecified Status: Acute Assessment and Plan: several issues: - bilateral heart failure with a poor LV ejection fraction - moderate pulmonary hypertension - severe tricuspid stenosis continue supportive therapy (4) Atrial fibrillation with RVR: Code(s): I48.91 - Unspecified atrial fibrillation Status: Acute Assessment and Plan: rate control strategy restarted on Eliquis Will continue to follow. Subjective Date/time seen: 11/20/19 11:34 Seems to be doing reasonably well at the time of my visit; no apparent distress voiced; happy about discharge later today. Exam Narrative: Exam Narrative: General: WD/WN male in NAD Heart: normal S1 and S2; no rub Lungs: clear to auscultation Abdomen: soft, nontender, nondistended, positive bowel sounds Extremities: no cyanosis or clubbing; no edema Skin: warm and intact Objective Data Vital Signs Vital Signs: Vital Signs Temp Pulse Resp BP Pulse Ox 11/20/19 08:33 93 11/20/19 06:25 37.0 C 94 16 113/66 96 11/19/19 20:11 98 11/19/19 19:56 36.2 C L 94 16 113/63 97 11/19/19 16:00 36.4 C 97 16 121/79 98 Intake/Output Intake/Output: Intake & Output 11/17/19 11/18/19 11/19/19 11/20/19 23:59 23:59 23:59 23:59 Intake Total 1420 1770 1855 875 Output Total 250 1400 2220 1650 Balance 1172 394 -162 -936 Meds/Results Medications: Active Medications Generic Name Dose Route Start Last Admin Trade Name Freq PRN Reason Stop Dose Admin Apixaban 5 mg 11/19/19 21:00 11/20/19 08:33 Eliquis PO 5 mg Q12HR JAIME Administration Cyclobenzaprine HCl 5 mg 11/14/19 23:30 11/15/19 00:32 Flexeril PO 5 mg Q8H PRN Administration Muscle Spasm Melatonin 3 mg 11/15/19 21:00 11/19/19 20:11 Melatonin PO 3 mg HS JAIME Administration Metoprolol Tartrate 25 mg 11/16/19 12:35 11/20/19 08:33 Lopressor PO 25 mg Q12HR JAIME Administration Ondansetron HCl 4 mg 11/15/19 20:55 11/15/19 21:33 Zofran Inj IV PUSH 4 mg Q4H PRN Administration Nausea And Vomiting Radiology Results: ITS Impressions Chest X-Ray 11/14/19 18:04 IMPRESSION: 1. Findings consistent with mild CHF exacerbation. Renal Ultrasound 11/17/19 16:58 IMPRESSION: Left renal cysts or Labs Labs: Laboratory Tests 11/19/19 05:31 11/20/19 08:39
--- NOTE | 2019-11-20 11:36 | PM.PNCARD ---
Progress Note: A&P Assessment and Plan (1) Atrial fibrillation with RVR: Code(s): I48.91 - Unspecified atrial fibrillation Status: Acute Assessment and Plan: History of AFib with cardioversion 2 years ago. Presented with AFib RVR on no medicines Diltiazem drip discontinued due to LV dysfunction. DC short-acting Toprol and start him on metoprolol succinate 25 mg p.o. daily with up titration as able. CHADS2 Vasc score is 4 (age, CHF, HTN). Continue anticoagulation Hoped to control the his heart rate and discharge him on rate controlling medications for office FU and perhaps an elective OTP CV. With his poor EF and atrial dilatation doubt that cardioversion would be successful. He thinks he may want to follow up again with Dr. Lentz at [facility]. He has not seen him for a number of years. He asked about getting medications from the [place] however he does not have an established primary care provider there. Echo 11/15/2019:Normal LV size and thickness with severe global hypokinesis, EF 30%. No focal wall motion abnormalities. Abnormal septal motion related to the patient's LBBB. Diastolic function is indeterminate. Right ventricular chamber dimension is mildly enlarged with mild to moderate right ventricular hypokinesis. Left atrial chamber dimension is moderately enlarged. Right atrial chamber dimension is moderately enlarged. There is moderate to severe eccentric mitral valve regurgitation. There is severe tricuspid valve stenosis. Moderate pulmonary hypertension, estimated pulmonary arterial systolic pressure is 51 mmHg. (2) Acute CHF: Qualifiers: Heart failure type: systolic Qualified Code(s): I50.21 - Acute systolic (congestive) heart failure Code(s): I50.9 - Heart failure, unspecified Status: Acute Assessment and Plan: New onset of acute CHF. Echo as above. May be related to atrial fibrillation with rapid ventricular response. creatinine improved and will eventually need some diuresis. Nephrology following Comfortable on room air. Does have some fine bibasilar crackles. Continue to monitor (3) Essential hypertension: Code(s): I10 - Essential (primary) hypertension Status: Acute Assessment and Plan: (4) Obstructive sleep apnea: Code(s): G47.33 - Obstructive sleep apnea (adult) (pediatric) Status: Acute Assessment and Plan: Noncompliant with CPAP (5) Chronic kidney disease, stage 4 (severe): Code(s): N18.4 - Chronic kidney disease, stage 4 (severe) Status: Acute Assessment and Plan: He is unaware of chronic kidney disease. (6) Noncompliance: Code(s): Z91.19 - Patient's noncompliance with other medical treatment and regimen Status: Acute Assessment and Plan: Again explained that his heart problems will need long-term medications. He verbalizes agreement Subjective Date/time seen: 11/20/19 11:36 Interval history: 74-year-old man with history of paroxysmal atrial fib now appears to have chronic persistent atrial fib. Patient is being managed with rate control and anticoagulation. Because of renal failure he is being treated with Coumadin. Patient indicates desire to follow-up with Dr. 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 He wants to go home. Review of Systems Constitutional: Constitutional: Reports weakness (Generalized) Eyes: Eyes: Denies blurry vision ENT: Denies epistaxis and Denies nasal congestion Cardiovascular: Cardiovascular: Denies chest pain, Reports pedal edema, Reports leg edema, Denies
--- NOTE | 2019-11-20 13:11 | PM.DS ---
DS: Diagnosis Admitting Diagnosis Admitting Diagnosis: Unspecified atrial fibrillation Discharge Diagnosis (1) Acute renal failure superimposed on stage 4 chronic kidney disease: Qualifiers: Acute renal failure type: unspecified Qualified Code(s): N17.9 - Acute kidney failure, unspecified; N18.4 - Chronic kidney disease, stage 4 (severe) Code(s): N17.9 - Acute kidney failure, unspecified; N18.4 - Chronic kidney disease, stage 4 (severe) Status: Acute Assessment and Plan: Current baseline creatinine unknown but does have history of chronic kidney disease stage 3. Now appears to be stage IV with GFR 29 and creatinine 2.40 on admission. Creatinine did rise to 4.20 after diuretics on 11/17/2019 with nephrology consulted. Appreciate input from Nephrology. 24 hour urine in process. Creatinine has improved to 3.70 again today. IV diuretics were discontinued on 11/16/2019 with increasing creatinine level. Renal ultrasound with left renal cysts. Will continue to monitor. Hopefully will not have recurrence of fluid overload issues without diuretic. Anticipate he should be able to discharge home creatinine has improved and he is otherwise stable. I did speak with his daughter Madiha ([phone]) with patient's permission as she does live in [place]. I had a long discussion with her regarding patient's current course and treatment plan. Daughter appreciative of information. Date of Service: 11/19/2019. Admitted with atrial fibrillation with RVR, CHF. Sitting in chair. Feels good today. No cough or shortness of breath. No chest pain or chest pressure. Swelling remains legs but has not increased. No headache or dizziness. No abdominal pain, nausea or vomiting. Still notices decrease in urination but unchanged. 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 Cardiology consulted and appreciate input. Heart rate now remains controlled on metoprolol tartrate. Now on warfarin for anticoagulation with INR 1.7 today. Warfarin dosage adjusted to 3 mg per Cardiology today. Patient now plans to follow-up with his regular senior receptionist, Dr. Lentz, at [facility]. Discussed with daughter patient will need to follow-up as he apparently has not been doing so recently. Daughter does mention patient was previously on Eliquis but discontinued for unknown reason. I did explain warfarin was currently chosen for anticoagulation due to cost of newer agents. Patient may need to rediscuss choice of anticoagulant with regular senior receptionist after discharge. We have switched patient to Eliquis (3) Acute CHF: Qualifiers: Heart failure type: systolic Qualified Code(s): I50.21 - Acute systolic (congestive) heart failure Code(s): I50.9 - Heart failure, unspecified Status: Acute Assessment and Plan: Result of atrial fibrillation with RVR. Echocardiogram results available this evening with EF 30%, severe global hypokinesis, diastolic dysfunction indeterminate and moderate pulmonary hypertension. Moderate to severe eccentric mitral valve regurgitation noted. Daughter was advised of echocardiogram results in addition to other information. IV Lasix discontinued as of 11/16/2019 due to increasing creatinine. Remains stable at this point without diuretic. On room air. Will monitor. (4) [place]
[2019-11-20 23:46] LABS: Lambda Light Chain 36.3 mg/L (5.7-26.3)
[2019-11-21 21:29] LABS: Anti Nuclear Antibody Pattern Nuclear, Speckled; Anti Nuclear Antibody Titer 1:40 (Negative)
== END 2019-11-20 14:35 | disposition home health service (06) | DRG 308 ==
LOC: ANHED 18:14 → ANHIMU 19:56 → ANH3MED 11-19 16:49 → ANHIMU 11-22 10:57
PROVIDERS: Hospitalist; Internal Medicine; Internal Medicine Cardiovascular Disease; Internal Medicine Nephrology; Nurse Practitioner Adult Health; Admitting Provider Internal Medicine; Emergency Provider Emergency Medicine; PCP Internal Medicine Endocrinology, Diabetes & Metabolism; Visit Provider Family Medicine
DX: I48.0 Paroxysmal atrial fibrillation (principal); I50.21 Acute systolic (congestive) heart failure; I13.0 Hypertensive heart and chronic kidney disease with heart failure and stage 1 through stage 4 chronic kidney disease, or unspecified chronic kidney disease; N17.9 Acute kidney failure, unspecified; N18.4 Chronic kidney disease, stage 4 (severe); G47.33 Obstructive sleep apnea (adult) (pediatric); Z91.14 Patient's other noncompliance with medication regimen; Z91.19 Patient's noncompliance with other medical treatment and regimen; Z85.46 Personal history of malignant neoplasm of prostate; I50.83 High output heart failure; D75.89 Other specified diseases of blood and blood-forming organs; I27.20 Pulmonary hypertension, unspecified; E78.5 Hyperlipidemia, unspecified; I07.0 Rheumatic tricuspid stenosis
CPT/HCPCS: 36415; 71046; 76775; 80048; 80053; 80069; 81001; 82533; 82550; 82570; 82607; 82746; 83735; 83880; 83883; 84156; 84300; 84443; 84484; 85025; 85610; 85652; 85730; 85999; 86038; 86039; 86160; 86162; 86334; 86335; 93005; 93306; 96365; 96366; 96375; 96376; 99285; A9270; J1650; J1940; J2405